=== PATIENT | female | born 1950 | race Hispanic/Latino ===

== ENCOUNTER → 2017-06-03 | Outpatient (CLI) | payer OTHER ==
[~2017-06-03] MED LIST: LOSA100T29 PO; VENL75 PO
== END ==
LOC: OIH 10:03
PROVIDERS: ATTEND Internal Medicine
DX: M54.5 Low back pain (principal)
CPT/HCPCS: 72100

== ENCOUNTER → 2018-03-26 | Outpatient (CLI) | payer OTHER ==
[~2018-03-26] MED LIST changes: -LOSA100T29 PO; +LOSA100T58 PO
== END | disposition home or self-care (01) ==
LOC: OIH 10:21
PROVIDERS: ATTEND Internal Medicine
DX: I10 Essential (primary) hypertension (principal); Q25.46 Tortuous aortic arch; M41.84 Other forms of scoliosis, thoracic region; M85.88 Other specified disorders of bone density and structure, other site; M47.894 Other spondylosis, thoracic region
CPT/HCPCS: 71046

== ENCOUNTER → 2018-08-19 | Outpatient (CLI) | payer OTHER | END | disposition home or self-care (01) | LOC: OIH 10:27 | PROVIDERS: ATTEND Internal Medicine | DX: M47.816 Spondylosis without myelopathy or radiculopathy, lumbar region (principal); M41.35 Thoracogenic scoliosis, thoracolumbar region; R29.898 Other symptoms and signs involving the musculoskeletal system | CPT/HCPCS: 72100 ==

== ENCOUNTER → 2019-01-05 | Outpatient (CLI) | payer OTHER | END | disposition home or self-care (01) | LOC: OIH 15:22 | PROVIDERS: ATTEND Internal Medicine | DX: J44.9 Chronic obstructive pulmonary disease, unspecified (principal); M85.88 Other specified disorders of bone density and structure, other site; M41.84 Other forms of scoliosis, thoracic region; R09.1 Pleurisy | CPT/HCPCS: 71046 ==

== ENCOUNTER → 2019-06-30 | Outpatient (CLI) | payer OTHER | END | disposition home or self-care (01) | LOC: OIH 09:54 | PROVIDERS: ATTEND Internal Medicine | DX: J44.9 Chronic obstructive pulmonary disease, unspecified (principal) | CPT/HCPCS: 71046 ==

== ENCOUNTER → 2019-10-13 | Outpatient (CLI) | payer OTHER | END | disposition home or self-care (01) | LOC: OIH 13:21 | PROVIDERS: ATTEND Internal Medicine | DX: S60.211A Contusion of right wrist, initial encounter (principal); X58.XXXA Exposure to other specified factors, initial encounter; Y93.89 Activity, other specified; Y92.89 Other specified places as the place of occurrence of the external cause; Y99.8 Other external cause status | CPT/HCPCS: 73100 ==

== ENCOUNTER → 2020-01-04 | Outpatient (CLI) | payer OTHER | END | disposition home or self-care (01) | LOC: OIH 10:31 | PROVIDERS: ATTEND Internal Medicine | DX: R07.81 Pleurodynia (principal) | CPT/HCPCS: 71100 ==

== ENCOUNTER → 2020-03-19 | Outpatient (CLI) | payer OTHER | END | disposition home or self-care (01) | LOC: OIH 15:17 | PROVIDERS: ATTEND Internal Medicine | DX: I10 Essential (primary) hypertension (principal) | CPT/HCPCS: 71046 ==

== ENCOUNTER 2021-12-18 17:06 | Observation (INO) | payer OTHER ==
[~2021-12-18] VITALS: Ht 162.6 cm; Wt 80.2 kg
[2021-12-18 17:50] LABS: HEMATOCRIT 44.1 % (36-48); MEAN CORPUSCULAR HEMOGLOBIN 30.3 pg (27.0-33.0); MEAN CORPUSCULAR HGB CONC 32.9 g/dL (32.0-36.0); MEAN CORPUSCULAR VOLUME 92.3 fL (79-99); RED BLOOD CELL COUNT(AUTO) 4.78 MIL/uL (4.00-5.50); RED CELL DISTRIBUTION WIDTH 12.6 % (11.0-15.5); WHITE BLOOD COUNT (AUTO) 8.6 K/uL (4.8-10.8)
[2021-12-18 18:00] LABS: CREATININE 0.9 mg/dL (0.5-1.5); POTASSIUM 3.9 mmol/L (3.5-5.1)
[2021-12-18] MEDS ORDERED: ONDANSETRON 4MG INJ IVP PRN (18:00)
[2021-12-18] MEDS ORDERED: CLONIDINE HCL 0.1 MG TABLET PO PRN (18:00)
[2021-12-18] MEDS ORDERED: NITROGLYCERIN 0.4 MG SL TAB SL PRN (18:00)
[2021-12-18 18:02] LABS: INR 1.04 (0.85-1.15); PROTHROMBIN TIME 11.3 SEC (9.6-11.6)
[2021-12-18 18:03] LABS: PARTIAL THROMBOPLASTIN TIME 25.9 SEC (26.3-35.5)
[2021-12-18 18:12] LABS: ALBUMIN 3.9 g/dL (3.5-5.0); THYROID STIMULATING HORMONE 1.36 uIU/mL (0.36-3.74); TOTAL PROTEIN, SERUM 7.7 g/dL (6.0-8.3)
[2021-12-18] MEDS ORDERED: ATOR10TA69 PO (18:14)
[2021-12-18] MEDS ORDERED: ASPI-1197 PO (18:14)
[2021-12-18] MEDS ORDERED: KCL 20 MEQ ERTAB PO PRN (19:00)
[2021-12-18] MEDS ORDERED: POTASSIUM CHLORIDE 20MEQ/100ML 100 ML IV PRN (19:00)
[2021-12-18] MEDS ORDERED: POTASSIUM CHLORIDE 10% ELIXIR 20 MEQ/15 ML UDCUP PO PRN (19:00)
[2021-12-18] MEDS ORDERED: LIDOCAINE HCL-MPF 1% 2ML VIAL IJ PRN (19:00)
[2021-12-19] VITALS (13 sets, daily range): BP systolic 96–142; BP diastolic 51–81
[2021-12-19 01:19] LABS: CREATINE KINASE, TOTAL 108 U/L (21-232); MYOGLOBIN 39 ng/mL (10-92)
[2021-12-19 07:12] LABS: HEMATOCRIT 39.5 % (36-48); MEAN CORPUSCULAR HEMOGLOBIN 30.8 pg (27.0-33.0); MEAN CORPUSCULAR HGB CONC 33.4 g/dL (32.0-36.0); MEAN CORPUSCULAR VOLUME 92.3 fL (79-99); RED BLOOD CELL COUNT(AUTO) 4.28 MIL/uL (4.00-5.50); RED CELL DISTRIBUTION WIDTH 12.6 % (11.0-15.5); WHITE BLOOD COUNT (AUTO) 8.3 K/uL (4.8-10.8)
[2021-12-19 07:46] LABS: CREATININE 0.7 mg/dL (0.5-1.5); MAGNESIUM 2.1 mg/dL (1.80-2.40); POTASSIUM 4.1 mmol/L (3.5-5.1); THYROID STIMULATING HORMONE 1.7 uIU/mL (0.36-3.74)
[2021-12-19] MEDS: ASPIRIN 325MG TAB PO SCH (09:00)
[2021-12-19] MEDS ORDERED: BUPIVACAINE/PF 0.25% 30ML VIAL IJ ONE ×3 (11:04→12:09)
[2021-12-19] MEDS ORDERED: CEFAZOLIN SODIUM 1 GM VIAL ONE (11:04)
[2021-12-19] MEDS ORDERED: FENTANYL CITRATE PF 50 MCG/1 ML 2ML VIAL ONE ×2 (11:05→12:12)
[2021-12-19] MEDS ORDERED: MIDAZOLAM HCL 1 MG/ML 2ML VIAL ONE ×2 (11:05→12:12)
[2021-12-19] MEDS ORDERED: IOHEXOL-350 50ML VIAL IV ONE (11:58)
[2021-12-19] MEDS ORDERED: HYDRALAZINE 20MG/ML VIAL ONE (12:28)
[2021-12-19] MEDS ORDERED: OCTYL 2-CYANOACRYLATE 1 EACH TP ONE (12:37)
[2021-12-19] MEDS ORDERED: ACETAMINOPHEN WITH CODEINE 1 TAB TAB PO PRN ×2 (13:00)
[2021-12-19] MEDS ORDERED: TEMAZEPAM 30 MG CAP PO PRN (13:00)
[2021-12-19] MEDS ORDERED: ONDANSETRON 4MG INJ IV PRN (13:00)
[2021-12-20 04:32] VITALS: BP 143/85
[2021-12-20 05:01] LABS: CREATININE 0.8 mg/dL (0.5-1.5); POTASSIUM 4.1 mmol/L (3.5-5.1); THYROID STIMULATING HORMONE 0.78 uIU/mL (0.36-3.74)
[2021-12-20] MEDS ORDERED: VENL37.570 PO (06:45)
[2021-12-20] MEDS ORDERED: VENL75CA97 PO (06:48)
[2021-12-20 08:00] VITALS: BP 157/101
[2021-12-20] MEDS: ASPIRIN 325MG TAB PO SCH (08:00)
[2021-12-20 09:58] VITALS: BP 153/98
[2021-12-20 12:00] VITALS: BP 166/90
== END 2021-12-20 12:45 | disposition home or self-care (01) ==
LOC: EDH 17:06 → DIRECT 17:07 → 2AH 12-19 13:22
PROVIDERS: ADMIT Internal Medicine; ATTEND Internal Medicine
DX: I49.5 Sick sinus syndrome (principal); Z20.822 Contact with and (suspected) exposure to COVID-19; I10 Essential (primary) hypertension; J44.9 Chronic obstructive pulmonary disease, unspecified; F32.A Depression, unspecified; Z79.899 Other long term (current) drug therapy; Z95.0 Presence of cardiac pacemaker
CPT/HCPCS: 99285; 84443 ×3; 82550 ×2; 83735 ×2; 83874 ×2; 84484 ×2; 80053; 85027 ×2; 85610; 85730; 36415 ×3; 87635; 71046 ×2; 93005; 33208; 80048 ×2; 84439; 71045; 93306; G0378 ×43; C1769; C1785; C1898 ×2; C1894; J3010; J0690; J3490 ×3; J0360; J2250 ×2; Q9967; 99156; 99157